=== PATIENT | female | born 1950 | race Caucasian/White ===

== ENCOUNTER 2018-04-02 08:03 | Outpatient (CLI) | payer MEDICARE | END 2018-04-02 08:04 | disposition short-term general hospital (02) | LOC: EMS 08:03 | PROVIDERS: ATTEND Surgery | DX: R07.9 Chest pain, unspecified (principal) | CPT/HCPCS: A0425; A0427 ==

== ENCOUNTER 2018-04-07 09:51 | Outpatient (CLI) | payer MEDICARE | END 2018-04-07 09:52 | disposition short-term general hospital (02) | LOC: EMS 09:51 | PROVIDERS: ATTEND Surgery | DX: R07.9 Chest pain, unspecified (principal) | CPT/HCPCS: A0425; A0427 ==

== ENCOUNTER 2018-05-03 13:07 | Outpatient (CLI) | payer MEDICARE ==
--- NOTE | 2018-05-04 11:51 | Mammography Report ---
Reason: SCREENING MAMMO Procedure Date: 05/03/2018 Accession Number: [id number] / [id number] Procedure: [facility] - Screening Mammo w/Arvind CPT Code: FULL RESULT: EXAM: Screening Mammo w/Arvind DATE: 05/03/2018 1:51 PM CLINICAL HISTORY: Routine screening TECHNIQUE: Bilateral CC and MLO views were obtained. COMPARISON: 01/22/2016, 05/25/2014, 03/14/2013 FINDINGS: There are scattered fibroglandular densities. There has been no significant interval change on the right. No suspicious masses, clustered microcalcifications, or regions of architectural distortion are identified. Areas of asymmetric density are stable. On the left cc view there is a density in the medial breast stable to slightly increased since 2015 and not definitely seen prior to 2015. It is not identified on the MLO projection. Otherwise no suspicious masses, clustered microcalcifications, or regions of architectural distortion. IMPRESSION: Benign findings right breast. Left breast needs additional evaluation by spot compression and true lateral views and possible ultrasound. RECOMMENDATION: Additional imaging left breast. BIRADS CATEGORY 0: Needs additional evaluation STANDARD QUALIFYING STATEMENTS: 1. This examination was not reviewed with the aid of Computer-Aided Detection (CAD). 2. A negative or benign imaging report should not delay biopsy if clinically suspicious findings are present. Consider surgical consultation if warrented. More than 5% of cancers are not identified by imaging. 3. Dense breasts may obscure an underlying neoplasm. 4. This examination was reviewed with the aid of 3D breast imaging (tomosynthesis).
== END 2018-05-03 13:08 | disposition home or self-care (01) ==
LOC: DI 13:07
DX: Z12.31 Encounter for screening mammogram for malignant neoplasm of breast (principal)
CPT/HCPCS: 77063; 77067

== ENCOUNTER 2018-07-13 13:18 | Outpatient (CLI) | payer MEDICARE ==
--- NOTE | 2018-07-13 15:17 | Mammography Report ---
Reason: ABNORMAL MAMMO Procedure Date: 07/13/2018 Accession Number: [id number] / [id number] Procedure: [facility] - Diag Special Views Dig LT CPT Code: FULL RESULT: EXAM: Diag Special Views Dig LT DATE: 07/13/2018 1:46 PM CLINICAL HISTORY: Diagnostic mammogram. The patient is recalled from screening for a left breast increasing density medially. TECHNIQUE: Left breast spot CC and MLO images are obtained. COMPARISON: 05/03/2018 through 03/14/2013. FINDINGS: The left breast is heterogeneously dense. The previously noted increasing density in the medial right breast reverts to a typically benign appearance of nodular breast parenchyma on spot compression views; as previously seen in 2015 and 2016. No suspicious calcifications, architectural distortion or mass. IMPRESSION: Benign findings RECOMMENDATION: Recommend routine annual Screening mammography unless otherwise clinically indicated. BIRADS CATEGORY 2: Benign findings STANDARD QUALIFYING STATEMENTS: 1. This examination was not reviewed with the aid of Computer-Aided Detection (CAD). 2. A negative or benign imaging report should not delay biopsy if clinically suspicious findings are present. Consider surgical consultation if warrented. More than 5% of cancers are not identified by imaging. 3. Dense breasts may obscure an underlying neoplasm. 4. This examination was reviewed with the aid of 3D imaging (tomography).
== END 2018-07-13 13:19 | disposition home or self-care (01) ==
LOC: DI 13:18
PROVIDERS: ATTEND Registered Nurse
DX: R92.8 Other abnormal and inconclusive findings on diagnostic imaging of breast (principal)

== ENCOUNTER 2018-09-07 07:10 | Outpatient (CLI) | payer MEDICARE ==
[2018-09-07 12:53] LABS: BASOPHILS % (AUTO) 0.9 %; EOSINOPHILS # (AUTO) 0.2 10^3/uL (0.0-0.7); EOSINOPHILS % (AUTO) 3.6 %; HGB - HEMOGLOBIN 13.1 g/dL (12.0-16.0); LYMPHOCYTES # (AUTO) 2.6 10^3/uL (1.5-3.5); LYMPHOCYTES % (AUTO) 49.1 %; MEAN CORPUSCULAR HEMOGLOBIN 31.4 pg (27.0-31.0); MEAN CORPUSCULAR HGB CONC 33.8 g/dL (32.0-36.0); MEAN PLATELET VOLUME 8.6 fL (7.9-10.8); MONOCYTES # (AUTO) 0.3 10^3/uL (0.0-1.0); MONOCYTES % (AUTO) 5.6 %; NEUTROPHILS # (AUTO) 2.2 10^3/uL (1.5-6.6); NEUTROPHILS % (AUTO) 40.8 %; PLT - PLATELET COUNT 291 10^3/uL (130-450); RED BLOOD COUNT 4.17 10^6/uL (4.20-5.40); RED CELL DISTRIBUTION WIDTH 14.5 % (12.0-15.0); WHITE BLOOD COUNT 5.3 x10^3/uL (4.8-10.8)
[2018-09-07 13:24] LABS: ALBUMIN 4.2 g/dL (3.2-5.5); ALBUMIN/GLOBULIN RATIO 1.5 (1.0-2.2); ALKALINE PHOSPHATASE 57 IU/L (42-121); ALT ALANINE AMINOTRANSFERASE 18 IU/L (10-60); AST ASPARTATE AMINOTRANSFERASE 18 IU/L (10-42); BILIRUBIN,TOTAL 0.7 mg/dL (0.2-1.0); BUN - BLOOD UREA NITROGEN 18 mg/dL (6-20); CALCIUM 9.3 mg/dL (8.5-10.3); CARBON DIOXIDE - CO2 25 mmol/L (21-32); CHLORIDE 105 mmol/L (101-111); CHOL/HDL RATIO 3.5 (<4.4); CHOLESTEROL 239 mg/dL; CREATININE 0.6 mg/dL (0.4-1.0); GFR - MDRD 100 (>89); GLUCOSE 111 mg/dL (70-100); HDL CHOLESTEROL 69 mg/dL; LDL CHOLESTEROL,CALCULATED 144 mg/dL; LDL/HDL RATIO 2.1 (<4.4); SODIUM 138 mmol/L (135-145); VLDL CHOLESTEROL 26 mg/dL
== END 2018-09-07 07:11 | disposition home or self-care (01) ==
LOC: LAB.F 07:10
PROVIDERS: ATTEND Registered Nurse
DX: E78.2 Mixed hyperlipidemia (principal); Z95.9 Presence of cardiac and vascular implant and graft, unspecified; Z87.891 Personal history of nicotine dependence
CPT/HCPCS: 36415; 80053; 80061; 83721; 84443; 85025

== ENCOUNTER 2018-09-07 20:11 | Outpatient (CLI) | payer MEDICARE | END 2018-09-07 20:12 | disposition EMS.NT | LOC: EMS 20:11 | PROVIDERS: ATTEND Surgery | DX: R55 Syncope and collapse (principal); R42 Dizziness and giddiness; R11.0 Nausea ==

== ENCOUNTER 2018-09-08 14:39 | Outpatient (CLI) | payer MEDICARE | END 2018-09-08 23:59 | disposition home or self-care (01) | LOC: LAB.F 14:39 | PROVIDERS: ATTEND Registered Nurse | DX: R55 Syncope and collapse (principal) | CPT/HCPCS: 36415; 84484 ==

== ENCOUNTER 2019-01-25 20:11 | Outpatient (CLI) | payer MEDICARE | END 2019-01-25 20:12 | disposition short-term general hospital (02) | LOC: EMS 20:11 | PROVIDERS: ATTEND Surgery | DX: R07.89 Other chest pain (principal); R06.02 Shortness of breath; R11.0 Nausea | CPT/HCPCS: A0425; A0427 ==

== ENCOUNTER 2019-04-02 09:43 | Emergency (ER) | payer MEDICARE ==
[2019-04-02 10:31] LABS: BILIRUBIN,URINE NEGATIVE (NEGATIVE); CLARITY,URINE CLEAR (CLEAR); GLUCOSE, URINE (UA) NEGATIVE (NEGATIVE); KETONES,URINE (UA) NEGATIVE (NEGATIVE); LEUKOCYTE ESTERASE, URINE NEGATIVE (NEGATIVE); NITRITE,URINE NEGATIVE (NEGATIVE); OCCULT BLOOD,URINE NEGATIVE (NEGATIVE); PROTEIN,URINE NEGATIVE (NEGATIVE); UROBILINOGEN,URINE 0.2 (NORMAL) E.U./dL (NORMAL)
[2019-04-02 10:32] LABS: BASOPHILS # (AUTO) 0.1 10^3/uL (0.0-0.1); BASOPHILS % (AUTO) 0.9 %; EOSINOPHILS # (AUTO) 0.2 10^3/uL (0.0-0.7); EOSINOPHILS % (AUTO) 2.3 %; HGB - HEMOGLOBIN 13.8 g/dL (12.0-16.0); LYMPHOCYTES # (AUTO) 2.5 10^3/uL (1.5-3.5); MEAN CORPUSCULAR HGB CONC 33.2 g/dL (32.0-36.0); MEAN CORPUSCULAR VOLUME 96.5 fL (81.0-99.0); MEAN PLATELET VOLUME 9.7 fL (7.9-10.8); MONOCYTES # (AUTO) 0.4 10^3/uL (0.0-1.0); NEUTROPHILS # (AUTO) 4.6 10^3/uL (1.5-6.6); NEUTROPHILS % (AUTO) 59.4 %; PLT - PLATELET COUNT 328 10^3/uL (130-450); RED BLOOD COUNT 4.31 10^6/uL (4.20-5.40); RED CELL DISTRIBUTION WIDTH 13.2 % (12.0-15.0); WHITE BLOOD COUNT 7.7 x10^3/uL (4.8-10.8)
[2019-04-02 10:43] LABS: ALBUMIN 5.3 g/dL (3.2-5.5); CALCIUM 9.9 mg/dL (8.5-10.3); CREATININE 0.6 mg/dL (0.4-1.0); TOTAL PROTEIN 7.9 g/dL (6.7-8.2)
--- NOTE | 2019-04-02 11:03 | ED Physician Documentation ---
History of Present Illness - Stated complaint Stated Complaint: NAUSEA - Chief complaint Chief Complaint: Abd Pain - History obtained from History obtained from: Patient, Friend - History of Present Illness Timing: How many days ago (9) - Additonal information Additional information: 68-year-old female with a prior history of coronary artery disease status post stents placement has developed nausea and dizziness. She feels that she might be dehydrated and she started having symptoms about 9 days ago. She is had persistence of her nausea she has not had any vomiting she has tried to stay hydrated with fluids and she has been eating scant amounts. She does state that she feels she is stressed by the arrangements that are being made for her to go to [place] to live with her children. She states that she has had this reaction to stress a number of times over the years and she has been evaluated at [place] for this and she is had a stress test done earlier this year. She did well on that. She is had a stent placed in 2016. She discusses the anxiety she lives with has related to moving off of the [place] and she states that she has lived in her home for about 15 years and she is quite comfortable and happy here. She states that she does not see a lot of people and is quite lonely but the thought of change and going to [place] is stressful. [place]. Review of Systems Constitutional: reports: Fatigue. denies: Fever Eyes: denies: Decreased vision Ears: denies: Ear pain Nose: denies: Rhinorrhea / runny nose, Congestion Throat: denies: Sore throat Cardiac: denies: Chest pain / pressure, Palpitations, Pedal edema, Calf pain Respiratory: denies: Dyspnea, Cough, Wheezing GI: reports: Nausea. denies: Abdominal Pain, Vomiting, Constipation, Diarrhea : denies: Dysuria, Frequency Skin: denies: Rash Musculoskeletal: denies: Neck pain, Back pain, Extremity pain Neurologic: denies: Generalized weakness, Focal weakness, Numbness PD PAST MEDICAL HISTORY - Past Medical History Cardiovascular: None, High cholesterol Respiratory: None Endocrine/Autoimmune: None GI: None DIRECTOR OF CLAIMS: None HEENT: None Psych: Depression, Anxiety Musculoskeletal: None Derm: None - Past Surgical History Past Surgical History: Yes Ortho: Carpal Tunnel surgery Cardiovascular: Coronary stent - Present Medications Home Medications: Ambulatory Orders Medication Instructions Recorded Confirmed Aspirin 80 mg PO DAILY 04/02/19 04/02/19 Atorvastatin [Lipitor] 80 mg PO DAILY 04/02/19 04/02/19 Clopidogrel [Plavix] 75 mg PO DAILY 04/02/19 04/02/19 Lorazepam [Ativan] 1 mg PO Q6HR PRN #14 tablet 04/02/19 Ondansetron Odt [Zofran] 4 mg TL Q6H PRN #10 tablet 04/02/19 - Allergies Allergies/Adverse Reactions: Allergies Allergy/AdvReac Type Severity Reaction Status Date / Time No Known Drug Allergies Allergy Verified 04/02/19 09:54 - Social History Does the pt smoke?: Yes Smoking Status: Current every day smoker Does the pt drink ETOH?: Yes Does the pt have substance abuse?: No - Immunizations Immunizations are current?: No Immunizations: TDAP >10years/unknown PD ED PE NORMAL - Vitals Vital signs reviewed: Yes (hypertensive mild ) - General General: Alert and oriented X 3, Well developed/nourished, Other (tears in the eyes ) - HEENT HEENT: Atraumatic, PERRL, EOMI - Neck Neck: Supple, no meningeal sign, No bony TTP - Cardiac Cardiac: RRR, No murmur - Respiratory Respiratory: No respiratory distress, Clear bilaterally - Abdomen Abdomen: Normal bowel sounds, Soft, Non tender, Non distended, No organomegaly - Back Back: No CVA TTP, No spinal TTP - Derm Derm: Normal color, Warm and dry, No rash - Extremities Extremities: No deformity, No edema - Neuro Neuro: Alert and oriented X 3, radio personality 2-12 intact, No motor deficit, No sensory deficit, Normal speech Eye Opening: Spontaneous Motor: Obeys Commands Verbal: Oriented GCS Score: 15 - Psych Psych: Other (mood is sad affect is blunted) Results - Vitals Vitals: Vital Signs - 24 hr 04/02/19 04/02/19 09:54 11:21 Temperature 36.4 C L Heart Rate 66 59 L Respiratory 18 18 Rate Blood Pressure 145/74 H 144/84 H O2 Saturation 100 100 Oxygen O2 Source Room air - EKG (time done) 1112 Rate: Rate (enter#) (56) Intervals: Wide QRS Ischemia: T wave inversion, Other (Flat or inverted T-waves ) Compare to prior EKG: Old EKG unavailable Computer interpretation: Agree with computer - Labs Labs: Laboratory Tests 04/02/19 04/02/19 04/02/19 10:10 10:10 10:10 WBC 7.7 RBC 4.31 Hgb 13.8 Hct 41.6 MCV 96.5 MCH 32.0 H MCHC 33.2 RDW 13.2 Plt Count 328 MPV 9.7 Neut # (Auto) 4.6 Lymph # (Auto) 2.5 White # (Auto) 0.4 Eos # (Auto) 0.2 Baso # (Auto) 0.1 Absolute Nucleated RBC 0.00 Nucleated RBC % 0.0 Sodium 138 Potassium 3.7 Chloride 100 L Carbon Dioxide 28 Anion Gap 10.0 BUN 10 Creatinine 0.6 Estimated GFR (MDRD) 100 Glucose 116 H Calcium 9.9 Total Bilirubin 1.0 AST 22 ALT 29 Alkaline Phosphatase 54 Troponin I High Sens Total Protein 7.9 Albumin 5.3 Globulin 2.6 Albumin/Globulin Ratio 2.0 Lipase 26 Urine Color YELLOW Urine Clarity CLEAR Urine pH 7.0 Ur Specific [place] <=1.005 Urine Protein NEGATIVE Urine Glucose (UA) NEGATIVE Urine Ketones NEGATIVE Urine Occult Blood NEGATIVE Urine Nitrite NEGATIVE Urine Bilirubin NEGATIVE Urine Urobilinogen 0.2 (NORMAL) Ur Leukocyte Esterase NEGATIVE Ur Microscopic Review NOT INDICATED Urine Culture Comments NOT INDICATED 04/02/19 10:10 WBC RBC Hgb Hct MCV MCH MCHC RDW Plt Count MPV Neut # (Auto) Lymph # (Auto) White # (Auto) Eos # (Auto) Baso # (Auto) Absolute Nucleated RBC Nucleated RBC % Sodium Potassium Chloride Carbon Dioxide Anion Gap BUN Creatinine Estimated GFR (MDRD) Glucose Calcium Total Bilirubin AST ALT Alkaline Phosphatase Troponin I High Sens 2.7 Total Protein Albumin Globulin Albumin/Globulin Ratio Lipase Urine Color Urine Clarity Urine pH Ur Specific [place] Urine Protein Urine Glucose (UA) Urine Ketones Urine Occult Blood Urine Nitrite Urine Bilirubin Urine Urobilinogen Ur Leukocyte Esterase Ur Microscopic Review Urine Culture Comments Procedures - IVC sono (time) 1100 Bedside IVC sono: IVC measures (cm) (1.75), Euvolemia PD MEDICAL DECISION MAKING - ED course Complexity details: reviewed old records, reviewed results, re-evaluated patient, considered differential, d/w patient, d/w family ED course: 68-year-old female with nausea diaphoresis and dizziness is not dehydrated on interrogation the inferior vena cava and she has normal electrolytes and blood counts. She indicates that she believes this is all related to stress of making an upcoming change in her living status. She is administered Zofran with improvement in her nausea and a troponin done with one week of symptoms is negative as well. I have offered the patient a prescription for Zofran as well as a limited supply of Ativan for anxiety. Departure - Departure Disposition: 01 Home, Self Care Clinical Impression: Adjustment disorder with anxiety Condition: Stable Instructions: ED Adjustment Disorder, ED Stress React Follow-Up: Charla Woods ARNP [Primary Care Provider] - Prescriptions: Lorazepam [Ativan] 1 mg PO Q6HR PRN #14 tablet PRN Reason: Anxiety Ondansetron Odt [Zofran] 4 mg TL Q6H PRN #10 tablet PRN Reason: Nausea / Vomiting
[2019-04-02] MEDS ORDERED: ONDANSETRON ODT 4 MG TABLET TL STA (11:22)
[2019-04-02 12:06] VITALS: BP 126/77
== END 2019-04-02 12:06 | disposition home or self-care (01) ==
LOC: ED 09:43
DX: F43.22 Adjustment disorder with anxiety (principal); R11.0 Nausea; R42 Dizziness and giddiness; I25.10 Atherosclerotic heart disease of native coronary artery without angina pectoris; Z95.5 Presence of coronary angioplasty implant and graft; Z79.02 Long term (current) use of antithrombotics/antiplatelets; Z79.82 Long term (current) use of aspirin; F17.200 Nicotine dependence, unspecified, uncomplicated
CPT/HCPCS: 36415; 80053; 81003; 83690; 84484; 85025; 93005; 99283; Q0162; 81001; 87086